=== PATIENT | female | born 1955 | race Caucasian/White ===

== ENCOUNTER → 2018-01-04 | Day surgery (SDC) | payer BC ==
--- NOTE | 2017-12-26 17:32 | MH ---
cc: Akilah Croft MD DATE OF ADMISSION: 01/04/2018 ADMITTING DIAGNOSES: Recurrent synovitis and possible torn medial meniscus of her right knee, now for arthroscopy of right knee. HISTORY OF PRESENT ILLNESS: This pleasant 62-year-old female is being admitted today with history of: Psoriatic arthritis with multiple surgeries for synovitis of both knees, complaining of pain and swelling in her right knee again. She has done well with a previous arthroscopic debridements. OTHER PAST HISTORY: Patient has a history of migraines and arthritis. CURRENT MEDICATIONS: Relpax 20 mg tablets. PAST SURGICAL HISTORY: She has had multiple arthroscopies on both knees. Hysterectomy in the past as well. REVIEW OF SYSTEMS: Noncontributory. FAMILY HISTORY: Noncontributory. SOCIAL HISTORY: She does not smoke or drink. ALLERGIES: NO KNOWN ALLERGIES. PHYSICAL EXAMINATION: GENERAL: We find a 62-year-old female, well-developed, well-nourished, oriented x 3, complaining of pain and swelling in her right knee. VITAL SIGNS: Blood pressure 100/70, pulse 84 and regular, respirations 16, temperature 98.4, pulse oximetry 97% on room air. HEENT: Eyes: PERRL. EOMI. Ears, nose, mouth clear. NECK: Supple. LUNGS: Clear. HEART: Regular rate. ABDOMEN: Soft, positive bowel sounds, nontender. EXTREMITIES: Reveal the right knee to have 2+ effusion. Neurovascularly intact to her toes. IMPRESSION: Recurrent synovitis of the right knee with possible torn meniscus. PLAN: Admission for arthroscopy and debridement of the right knee today. The patient was given prescription for postoperative pain control in the office. MD YELENA Germain/KENDALL , 05:21 PM , 05:31 PM
[~2018-01-04] VITALS: Ht 162.6 cm; Wt 62.0 kg
[~2018-01-04] MED LIST: ACETAMINOPHEN/HYDROcodone 325 MG/5 MG TAB ONE; BUPIVACAINE/EPINEPHRINE 0.5% PF 10 ML VIAL ONE; CHLORHEXIDINE GLUCONATE 2 % 1 PACK (2 CLOTHS) TOPICAL PRN; CHLORHEXIDINE GLUCONATE 4% SOLN 120 ML BTL TOPICAL SCH; DEXAMETHASONE SOD PHOS 4 MG/ML VIAL ONE; INSULIN HUMAN REGULAR 1,000 UNITS/10 ML VIAL SQ PRN; LACTATED RINGER'S 1000 ML IV PRN; MEPERIDINE HCL 25 MG/ML VIAL ONE; METOPROLOL TARTRATE 25 MG TAB PO PRN; MIDAZOLAM HCL 2 MG/2 ML VIAL ONE; POVIDONE IODINE 5% (ANTISEPSIS KIT) 4 APPLICATIONS EACH NARE PRN; RELP20TA PO; SODIUM CHLORID 0.9% 500 ML IV PRN; ceFAZolin 2 GM PREMIX 50 ML IV SCH
--- NOTE | 2018-01-04 13:30 | MP ---
cc: Akilah Croft MD DATE OF OPERATION: 01/04/2018 PREOPERATIVE DIAGNOSIS: Hypertrophic synovium, right knee. 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 SURGERY PERFORMED: Arthroscopy and synovectomy and debridement of chondromalacia medial and lateral compartments, right knee. SURGEON: Akilah Croft MD SOLID PLASTERER: ETIENNE Bass. ANESTHESIA: LMA. PROCEDURE IN DETAIL: Please use my operating guide for arthroscopy insert. The findings were hypertrophic synovium throughout the knee joint and removed using ArthroCare cutter, shaver and probed to afford removal of the synovium. Also noted on the undersurface of the weightbearing portion of the medial and lateral femoral condyle was some grade 2 chondromalacia shaved smoothed using the ArthroCare system. Otherwise, the rest of the knee medial and lateral compartment was found to be intact. The anterior cruciate was found to be intact, but hypertrophic. Patellofemoral joint found to be intact. The wound irrigated copiously with lactated Ringer's solution. Excess fluid removed and 8 mL of 0.25% Marcaine with epinephrine and 2 mL of Decadron inserted into the knee joint. Skin approximated with interrupted 3-0 nylon suture. Wet and then dry dressing applied to the wound followed by Xeroform gauze, sterile dressing and a thigh Tyler wrap. No tourniquet utilized. ESTIMATED BLOOD LOSS: 10 mL. COUNTS: Sponge and suture counts correct. DISPOSITION: The patient tolerated the procedure well and left the operating room in satisfactory condition. ETIENNE Bass was present throughout the entire procedure for patient positioning, as well as the procedure itself. The medical necessity of the nurse practitioner, as a assistant brand manager was indicated in this case due to the complexity of the case itself. The patient tolerated the procedure well and left the operating room in satisfactory condition. Akilah Croft MD JRJohn/DL , 01:07 PM , 01:29 PM
[2018-01-04 15:10] VITALS: BP 130/72; PULSE 88; RESP 16; TEMP 97.5; O2SAT 100
--- NOTE | 2018-01-04 16:44 | HHI.PR ---
Immediate Post Op Note Procedure Date: Jan 04, 2018 Pre Op Diagnosis: Hypertrophic synovium, right knee . 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 Surgeon: Gabriela Croft MD Perforating Machine Operator(s): Ambreen CLIFTON Procedure: Arthroscopy and synovectomy and debridement of chondromalacia medial and lateral compartments, right knee. Complications: none Estimated blood loss: 5cc Anesthesia: LMA Drains: None IVF Urinary Output (mLs): 0 (no majano) Tourniquet time (min at mmHg) none Patient to: SDS Patient Condition: Good Implant/Devices: SEE IMPLANT LOG (if applicable) Date/Time of Procedure: SEE SURGICAL CARE RECORD Ambreen Gabriel Jan 04, 2018 16:44
--- NOTE | 2018-01-05 12:38 | EKG ---
Date Performed: 01/04/2018 Time Performed: 11:39:05 PTAGE: 62 years EKG: Sinus rhythm INCOMPLETE RIGHT BUNDLE BRANCH BLOCK BORDERLINE ECG PREVIOUS TRACING : 04/05/2006 12.34 DOCTOR: Valdo De Los Santos Interpretating Date/Time 01/05/2018 12:36:33
== END | disposition home or self-care (01) ==
LOC: PHSDC 10:26
PROVIDERS: ATTEND Surgery
DX: M67.261 Synovial hypertrophy, not elsewhere classified, right lower leg (principal); M65.9 Synovitis and tenosynovitis, unspecified; L40.50 Arthropathic psoriasis, unspecified; M25.461 Effusion, right knee; M94.261 Chondromalacia, right knee; G43.909 Migraine, unspecified, not intractable, without status migrainosus; R94.31 Abnormal electrocardiogram [ECG] [EKG]; Z01.810 Encounter for preprocedural cardiovascular examination
CPT/HCPCS: 01400; 29876; 93005; J0690; J1100; J2175; J2250; J3010; J7120